=== PATIENT | male | born 1980 | race African-American/Black ===

== ENCOUNTER 2021-06-21 16:38 | Emergency (ER) | payer OTHER ==
[~2021-06-21] VITALS: Ht 167.6 cm; Wt 58.5 kg
--- NOTE | 2021-06-21 16:53 | NUR ---
BIBS THIS 41YO MALE PATIENT WITH CC OF HEADACHE X2 WEEKS AND HAD FEVER TODAY. PAIN SCALE OF 4. NO MEDS TAKEN FOR FEVER OR PAIN.
--- NOTE | 2021-06-21 16:58 | NUR ---
HILARY BALDERAS CAME TO SEE PATIENT
--- NOTE | 2021-06-21 17:05 | NUR ---
COVID ANTIGEN SWAB SENT TO LAB
--- NOTE | 2021-06-21 17:16 | NUR ---
PATIENT WAS BROUGHT TO CT SCAN DEPARTMENT BY [employer] IN[employer] MANAGER FOR CT SCAN OF HEAD.
[2021-06-21] MEDS ORDERED: IBUPROFEN 600 MG TABLET PO ONE (17:30)
[2021-06-21] MEDS ORDERED: IBUPROFEN 600 MG TABLET ONE (17:31)
[2021-06-21] MEDS ORDERED: IBUP-1955 PO (18:33)
[2021-06-21] MEDS ORDERED: AMOX-430 PO (18:33)
[2021-06-21 18:47] VITALS: BP 121/68
== END 2021-06-21 18:50 | disposition home or self-care (01) ==
LOC: ER 16:42
DX: J32.9 Chronic sinusitis, unspecified (principal); Z20.822 Contact with and (suspected) exposure to COVID-19
CPT/HCPCS: 70450; 70486; 87426; 99284; C9803

== ENCOUNTER 2021-07-28 14:11 | Emergency (ER) | payer OTHER ==
[~2021-07-28] VITALS: Ht 167.6 cm; Wt 72.6 kg
[~2021-07-28 14:11] MED LIST: AMOX-430 PO; IBUP-1955 PO
[2021-07-28 14:22] VITALS: BP 139/84
--- NOTE | 2021-07-28 14:22 | NUR ---
ITCHING, GENERALIZED RASH X 2 DAYS. NO THROAT DISCOMFORT,SOB ENDORSED NOW FEELING PAIN WHERE THE RASH IS.
[2021-07-28] MEDS ORDERED: PRED20TA PO (14:50)
[2021-07-28] MEDS ORDERED: DIPH25CA83 PO (14:50)
== END 2021-07-28 14:58 | disposition home or self-care (01) ==
LOC: ER 14:21
DX: R21 Rash and other nonspecific skin eruption (principal); Z79.899 Other long term (current) drug therapy